=== PATIENT | male | born 1960 ===

== ENCOUNTER 2021-01-23 08:05 | Emergency (ER) | payer SELFPAY ==
[~2021-01-23] VITALS: Ht 180.3 cm; Wt 120.2 kg
[2021-01-23 08:07] VITALS: BP 136/92
[2021-01-23] MEDS ORDERED: METO50TA7 PO (08:19)
[2021-01-23] MEDS ORDERED: INSULANT SC (08:19)
[2021-01-23] MEDS ORDERED: NOVOINJ SC (08:19)
[2021-01-23] MEDS ORDERED: ATOR80TA59 PO (08:19)
[2021-01-23] MEDS ORDERED: CYANCRY6 XX (08:19)
[2021-01-23] MEDS ORDERED: ASPI81CH33 PO (08:19)
[2021-01-23] MEDS ORDERED: ISOS20TA PO (08:19)
--- NOTE | 2021-01-23 08:46 | REP ---
INDICATION: DYSPNEA/COUGH COMPARISON: None. TECHNIQUE: PA and lateral. FINDINGS: The mediastinum and cardiac silhouette are normal. The lung sheridan suggest very subtle scattered airspace disease. No discrete focal consolidation. No effusion or pneumothorax. The skeletal structures are intact and normal. IMPRESSION: Very subtle patchy lower lobe airspace disease cannot be excluded. Correlation with auscultation and physical examination recommended. Findings should be correlated with COVID-19 status. <Electronically signed by Suman George > 01/23/21 0815
--- NOTE | 2021-01-24 08:02 | ECGEPIP ---
[facility] - ED Test Date: 2021-01-23 Pat Name: MAIRA MALHOTRA Department: Room: - Gender: Male Coating Technician: DERECK : 1960 Requested By: KAT Perez Order Number: [id number] Reading MD: Charles Ewing Measurements Intervals [place] Rate: 84 P: 54 [place]: 236 QRS: 11 QRSD: 100 T: 113 QT: 386 QTc: 456 Interpretive Statements Sinus rhythm with 1st degree AV block Possible Left atrial enlargement Low voltage QRS Inferior infarct , age undetermined Cannot rule out Anterior infarct , age undetermined ST & T wave abnormality, consider lateral ischemia NO PRIORS FOR COMPARISON Electronically Signed on 01-24-2021 8:01:59 EDT by Charles Ewing
== END 2021-01-23 09:54 | disposition left against medical advice (07) ==
LOC: M ED 08:05
DX: Z53.29 Procedure and treatment not carried out because of patient's decision for other reasons (principal)